=== PATIENT | female | born 1985 | race Caucasian/White ===

== ENCOUNTER → 2017-01-13 16:37 | Outpatient (CLI) | payer MEDICAID | END | disposition home or self-care (01) | LOC: D.MAMMO 08:30 | DX: N63 Unspecified lump in breast (principal) ==

== ENCOUNTER 2017-07-18 05:05 | Day surgery (SDC) | payer MEDICAID ==
[~2017-07-18] VITALS: Ht 157.5 cm; Wt 51.3 kg
[2017-07-18 06:11] LABS: HEMATOCRIT 38.8 % (36.0-48.0); IMMATURE GRANULOCYTES 0.4 % (0-5); LYMPHOCYTES 33.1 % (15-50); MCH 30.2 pg (26.0-34.0); MCHC 33.5 g/dL (31.0-37.0); MCV 90.2 fL (80.0-100.0); MEAN PLATELET VOLUME 9.2 fL (7.4-10.4); MONOCYTES 8.9 % (2-11); NEUTROPHILS 53.6 % (40-80); PLATELET COUNT 284 10x3/uL (130-400); RDW 13.2 % (11.5-14.5); WBC 7.3 10x3/uL (4.8-10.8)
[2017-07-18 06:12] VITALS: BP 125/74; Ht 157.5 cm; Wt 51.3 kg
[2017-07-18 06:24] LABS: CALC OSMOLALITY 272 mosm/kg (275-300); CARBON DIOXIDE 24.1 mmol/L (21.0-32.0); CHLORIDE - SERUM 104 mmol/L (98-107); CREATININE - SERUM 0.9 mg/dL (0.6-1.3); GLUCOSE 95 mg/dL (74-106); POTASSIUM - SERUM 3.7 mmol/L (3.5-5.1); SODIUM 137 mmol/L (136-145); UREA NITROGEN 11 mg/dL (7-18); eGFR NON AFRICAN AMERICAN 77 mL/min (90-120)
[2017-07-18 06:52] LABS: HCG URINE NEGATIVE (NEGATIVE)
[2017-07-18] MEDS ORDERED: HYDROCODONE-APA1 TAB PO (09:08)
--- NOTE | 2017-07-21 10:30 | OP ---
PATIENT NAME: MARK NUNEZ MEDICAL RECORD: [id number] :87 LOCATION:[facility] ADMISSION DATE: SURGEON: ARNEL DOLL MD DATE OF OPERATION: 07/18/2017 PREOPERATIVE DIAGNOSIS: Right breast fibroadenoma. POSTOPERATIVE DIAGNOSIS: Right breast fibroadenoma. PROCEDURE: Excision of right upper outer quadrant breast fibroadenoma. SURGEON: Arnel Doll MD REPORT OF PROCEDURE: The patient's right breast and axilla were prepped and draped in sterile fashion. A skin incision was made through a crease in her right axilla. Electrocautery was used to dissect through the subcutaneous tissue and we tunneled out to the right upper outer quadrant. During that time, we encountered 2 mildly enlarged lymph nodes that appeared to be stained likely from the tattoo she had on her right flank. They were bright blue in color. Two of these lymph nodes were removed and sent off for permanent specimen. As we continued our dissection towards the breast, we were able to encounter the fibroadenoma. This was about 2-2.5 cm in greatest diameter. The fibroadenoma was freely mobile. We were able to dissect it from the outer attachments. Once we had the mass completely excised, it was sent off for permanent specimen. We inspected the area and any bleeding that was found was treated with electrocautery. We then irrigated out the wound thoroughly with normal saline. The subcutaneous tissues were reapproximated with interrupted 3-0 Vicryls and the skin was closed with running subcutaneous 5-0 Monocryl. A 10 mL of 0.25% Marcaine with epinephrine was infused into the surrounding tissues and the wounds were dressed appropriately. COMPLICATIONS: None. CONDITION: Stable. ANESTHESIA: General endotracheal and local. BLOOD LOSS: Minimal. 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
== END 2017-07-18 12:00 | disposition home or self-care (01) ==
LOC: D.OPS 05:05 → D.PAN 07:30 → D.OPS 07:30
PROVIDERS: Surgery
DX: D24.1 Benign neoplasm of right breast (principal); Z01.812 Encounter for preprocedural laboratory examination